=== PATIENT | female | born 1990 | race African-American/Black ===

== ENCOUNTER 2017-02-27 06:08 | Emergency (ER) | payer SELFPAY ==
[~2017-02-27] VITALS: Ht 162.6 cm; Wt 68.0 kg
[~2017-02-27 06:08] MED LIST: METR-1 PO
[2017-02-27 06:11] VITALS: BP 113/67; PULSE 60; RESP 16; TEMP 97.9; O2SAT 100
--- NOTE | 2017-02-27 06:40 | PD ---
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 Patient states she just finished her period yesterday. Patient used a new tampon and since then has noted irritation. Patient denies any abnormal vaginal bleeding dysuria frequency urgency or abnormal discharge. Patient denies . Patient is concerned about sensation of swelling to the labia. No report of trauma injury. No fever or chills. PFSH Past Medical History Narrative Medical Negative past medical history; occasional alcohol use: Nursing notes reviewed Immunizations Current: Yes Migraines: Yes Tetanus Vaccination: Unknown Influenza Vaccination: Yes ?: Unknown LMP: 02/27/17 Social History Alcohol Use: Yes (occ) Tobacco Use: Yes Substance Use: No Allergies-Medications (Allergen,Severity, Reaction): Coded Allergies: No Known Allergies (Unverified Adverse Reaction, Unknown, 02/27/17) Reported Meds & Prescriptions Reported Meds & Active Scripts Active Flagyl (Metronidazole) 500 Mg Tab 500 Mg PO BID Review of Systems Except as stated in HPI: all other systems reviewed are Neg Physical Exam Narrative GENERAL: SKIN: Warm and dry. HEAD: Normocephalic. EYES: No scleral icterus. No injection or drainage. NECK: Supple, trachea midline. No JVD or lymphadenopathy. CARDIOVASCULAR: Regular rate and rhythm without murmurs, gallops, or rubs. RESPIRATORY: Breath sounds equal bilaterally. No accessory muscle use. GASTROINTESTINAL: Abdomen soft, non-tender, nondistended. Pelvic exam: External exam no labial edema or erythema or lesion; speculum exam white caseating discharge with mild vaginal mucosa edema no foreign body; bimanual nontender Data Data Last Documented VS Vital Signs Date Time Temp Pulse Resp B/P (MAP) Pulse Ox O2 Delivery O2 Flow Rate FiO2 02/27/17 06:11 97.9 60 16 113/67 (82) 100 Room Air Orders Orders Wet Prep Profile (02/27/17 06:37) Ed Urine Pregnancytest Poc (02/27/17 06:37) Labs Laboratory Tests Test 02/27/17 06:40 Clue Cells (Wet Prep) NONE SEEN Vaginal Trichomonas (Wet Prep) PRESENT Vaginal Yeast (Wet Prep) NONE SEEN MDM Medical Decision Making Medical Screen Exam Complete: Yes Emergency Medical Condition: Yes Medical Record Reviewed: Yes Interpretation(s) poc hcg: negative wet prep: Trichomonas Differential Diagnosis Vaginal yeast infection, contact dermatitis, bacterial vaginosis Narrative Course [id number] hCG performed; wet prep specimen collected and sent for resulting Diagnosis Primary Impression: Vaginosis Referrals: Primary Care Physician as needed Patient Instructions: General Instructions Additional Instructions: Complete course of medication as prescribed Follow-up with your primary care provider Return to the emergency department for any concerns or change in condition Discontinue use of the tampon product Med/Other Pt SpecificInfo: Prescription(s) given Scripts Metronidazole (Flagyl) 500 Mg Tab 500 MG PO TID for Infection for 7 Days, TAB 0 Refills Prov: Nohelia Salas MD 02/27/17 Disposition: 01 DISCHARGE HOME Condition: Stable Nohelia Salas MD Feb 27, 2017 06:40
[2017-02-27] MEDS ORDERED: METR-1 PO (07:10)
== END 2017-02-27 07:26 | disposition home or self-care (01) ==
LOC: NEPC 06:08
DX: N76.0 Acute vaginitis (principal); Z72.0 Tobacco use
CPT/HCPCS: 84703; 87210; 99283